=== PATIENT | female | born 1995 | race African-American/Black ===

== ENCOUNTER 2017-07-09 05:44 | Inpatient (IN) ==
[2017-07-09] MEDS ORDERED: MEPERIDINE 50 MG/1 ML VIAL IM PRN (06:06)
[2017-07-09] MEDS ORDERED: ONDANSETRON 4 MG/2 ML VIAL IV PRN (06:06)
[2017-07-09] MEDS ORDERED: INFLUENZA VIRUS VACCINE 0.5 ML SYRINGE IM ONE (06:20)
[2017-07-09] MEDS ORDERED: OXYTOCIN/LR 20 UNIT/1,000 ML BAG IV SCH (06:30)
[2017-07-09] MEDS: LACTATED RINGERS 1,000 ML IV SCH ×2 (06:30→09:22)
[2017-07-09 06:43] LABS: Apearance,Urine CLEAR (Clear); Bacteria,Urine Occasional /HPF (Few); Bilirubin,Urine Negative (Negative); Blood, Urine Negative (Negative); Glucose,Urine (UA) Negative (Negative); Ketones,Urine Negative (Negative); Mucus,Urine Occasional /LPF (Occasional); Nitrite,Urine Negative (Negative); Protein,Urine Negative; RBC,Urine 1 /HPF (0-4); Squamous Epithelial Cell,Urine Occasional /HPF (0-10); Urine Color Yellow (Yellow); Urine Specific Gravity 1.015 (1.001-1.035); Urine Urobilinogen < 2.0 EU/DL (0.2-1.0); WBC,Urine 1 /HPF (0-6)
[2017-07-09 06:48] LABS: Basophils % 0.3 % (0.0-0.8); Eosinophils # 0.3 10*3/uL (0.0-0.87); Eosinophils % 2.4 % (0.00-10.9); Hemoglobin 14.2 GM/DL (12.0-16.0); Immature Granulocytes % 0.6 %; Immature Granulocytes Absolute 0.07 #; Lymphocytes # 2.4 10*3/uL (1.4-4.0); Mean Corpuscular HGB Conc 33.8 GM/DL (32-36); Mean Corpuscular Hemoglobin 30 PG (27-34); Mean Corpuscular Volume 88.4 FL (87-102); Monocytes # 0.9 10*3/uL (0.11-0.8); Monocytes % 7.4 % (1.7-12.7); Neutrophils # 8.7 10*3/uL (1.4-7.4); Neutrophils % 70.3 % (38.7-73.9); Platelet Count 191 T/CUMM (130-400); Red Blood Count 4.75 MC/CUMM (3.8-5.5); Red Cell Distribution Width 14.5 % (9.3-17.3); White Blood Count 12.4 T/CUMM (4-12)
[2017-07-09] MEDS ORDERED: DINOPROSTONE VAG GEL 10 MG SYRINGE VAG ONE ×2 (06:50→15:51)
[2017-07-09 07:12] LABS: Albumin 3.1 G/DL (3.4-5.0); Bilirubin,Total 0.5 MG/DL (0.2-1.0); Calcium 9.1 MG/DL (8.5-10.1); Osmolality,Calculated 266.2 MOS/KG (273-304); Potassium 4.2 MMOL/L (3.5-5.1); Total Protein 6.7 G/DL (6.4-8.3); Uric Acid 3.7 MG/DL (2.6-6.0)
--- NOTE | 2017-07-09 09:59 | OB/GYN History & Physical ---
History of Present Illness Chief complaint: In for induction of labor. History of present illness: Ms. Miller is a 22 year old female who is a primigravida. Her SERENA is 07/14/2017 for an estimated gestational age of 39 weeks. The patient presents to the labor department for elective induction of labor due to term . The risk and benefits of been thoroughly discussed with this patient and significant other, plan of care has been discussed with Dr. Guillen and all parties are in agreement plan. The patient received her care at the [facility] and she received routine care, her course was uneventful. labs: She is O+, RPR is nonreactive, hepatitis B negative , HIV negative, rubella is immune, GBS cultures negative. Review of systems is negative with exception of above. Home Medications Medication Instructions Recorded Confirmed Type Vit No.124/Iron/Folic 1 tablet PO DAILY MDD one tab 07/09/17 07/09/17 History [ Vitamin Tablet] Allergies Allergy/AdvReac Type Severity Reaction Status Date / Time No Known Allergies Allergy Verified 07/09/17 06:04 12 point system: reviewed and no additional remarkable complaints except as stated Medical,Surgical,& Family Hx - Medical History Medical History: noncontributory Reproductive: History of: Abnormal Pap Smear (Patient had a cryosurgery because of this) - Surgical History Reproductive Surgeries: Patient denies;: Section - Family History Family History: Reports;: Family Diabetes (DAD), Family Hypertension (DAD) Denies;: Family Anesthesia Reaction, Family Cancer, Family Heart Disease, Family Hematology, Family Psychiatric Problems, Family Stroke, Additional Family History - Social History Smoking Status: Never smoker Frequency of Alcohol Use: None Type of Drug Use: None Marital Status: Single Lives With:: Significant Other Functional capacity: independent ambulation Exam YACHT HAND - Constitutional Vitals: Vital Signs Temp Pulse Resp BP 07/09/17 08:00 98.3 F 85 20 128/60 General appearance: no acute distress - Antepartum / Post Antepartum Exam Cervix - Dilatation: 1 cm Effacement: 50% Station: -2 Rupture: Intact Presentation: Vertex Heart Rate: 140s Breast: bilateral: normal Abdomen obstetrics: Present: bowel sounds normal Vagina: Present: normal moisture, discharge Uterus exam: Present: enlarged - Respiratory Respiratory exam: Present: clear to auscultation bilaterally - Cardiovascular Cardiovascular exam: Present: regular rate and rhythm - GI/Abdominal GI/Abdominal exam: Present: normal bowel sounds, soft - Extremities Exam Extremities exam: Present: normal inspection - Neurological Exam Neurological exam: Present: alert, oriented X3 - Psychiatric Psychiatric exam: Present: normal affect, normal mood - Skin Skin exam: Present: normal color, warm Assessment and Plan (1) 39 weeks gestation of Status: Acute Assessment and plan: Admit IV fluids Prostin gel per protocol IV Pitocin per protocol if indicated Artificial rupture membranes when appropriate Internal monitors if indicated Epidural anesthesia if desired Anticipate Current Visit: Yes Results - Labs CBC & BMP: 07/09/17 06:20 07/09/17 06:20
[2017-07-10] MEDS: LACTATED RINGERS 1,000 ML IV SCH (07:26)
--- NOTE | 2017-07-10 09:06 | Event Note ---
0828 Artificial rupture membranes was performed with clear fluid noted. The patient is 3 cm dilated 90% effaced and the vertex is presenting at a -2 station. She is receiving IV pain meds for pain control. The patient does not desire an epidural at this time. We will continue with plan of care. An IUPC was inserted without difficulty. Will proceed with IV Pitocin per protocol.
[2017-07-10] MEDS ORDERED: LACTATED RINGERS 1,000 ML IV ONE (09:53)
[2017-07-10] MEDS ORDERED: FAMOTIDINE 20 MG/2 ML VIAL IV ONE (09:53)
[2017-07-10] MEDS ORDERED: CITRIC ACID/SODIUM CITRATE 30 ML UDCUP PO ONE (09:53)
[2017-07-10] MEDS ORDERED: PROMETHAZINE 25 MG/1 ML VIAL IM ONE (09:54)
[2017-07-10] MEDS ORDERED: hydrOXYzine HCL 25 MG/1 ML VIAL IM PRN (09:54)
[2017-07-10] MEDS ORDERED: fentaNYL 2 MCG/ROPIV 0.2% EPID 150 ML EPIDURAL SCH (09:54)
[2017-07-10] MEDS ORDERED: diphenhydrAMINE 50 MG/1 ML VIAL IV PRN ×2 (09:54)
[2017-07-10] MEDS ORDERED: ePHEDrine 50 MG/ML AMP IV PRN (09:54)
[2017-07-10 11:29] LABS: Amorphous Crystals,Urine Occasional /HPF (Few); Apearance,Urine Slightly Hazy (Clear); Bacteria,Urine Occasional /HPF (Few); Bilirubin,Urine Negative (Negative); Blood, Urine Negative (Negative); Glucose,Urine (UA) Negative (Negative); Ketones,Urine Negative (Negative); Mucus,Urine Occasional /LPF (Occasional); Nitrite,Urine Negative (Negative); Protein,Urine Negative; RBC,Urine 1 /HPF (0-4); Squamous Epithelial Cell,Urine Occasional /HPF (0-10); Urine Color Yellow (Yellow); Urine Specific Gravity 1.017 (1.001-1.035); WBC,Urine 1 /HPF (0-6)
[2017-07-10 13:11] LABS: Cord Venous Blood HCO3 21.3 MMOL/L; Cord Venous Blood PCO2 49.1 MMHG
--- NOTE | 2017-07-10 13:34 | Event Note ---
HPI: Ms. Miller presented to the labor department for elective induction of labor with Prostin gel. The risk and benefits were thoroughly discussed with the patient and significant other, and plan of care was discussed with Dr. Guillen and all parties were in agreement with plan. Stage I: The patient was admitted she received Prostin gel per protocol 2. She subsequently was started on IV Pitocin per protocol the morning of 2016. Artificial rupture of membranes was performed clear fluid noted. She received an epidural for pain control. The patient progressed in labor with a CAT 1 tracing. An IUPC catheter was inserted for more effective monitoring. Ms. Miller had an uneventful course of labor. Stage II: The patient was complete and instructed to push. She pushed for approximately 15-20 minutes after which time the infant's head was delivered. The mouth and nose was suctioned out on the perineum. The remainder the infant was delivered at 1241, a viable male infant was noted. Apgars were 8 at 1 minute and 9 at 5 minutes. weight was 6 pounds and 8 ounces. A cord pH was obtained and sent to the lab. The was placed on the mom's abdomen for skin to skin bonding. Stage III: A spontaneous delivery of a Aquino placenta with a three-vessel cord noted. The placenta was further examined and appeared to be grossly intact. The vagina cervix was inspected with a first-degree vaginal laceration noted which was repaired. Epidural anesthesia remain in effect on repair. Estimated blood loss was approximately 150 cc. At the time of dictation mother and baby are both in stable condition.
[2017-07-10] MEDS ORDERED: ACETAMINOPHEN/CODEINE 300-30 MG TABLET PO PRN (13:57)
[2017-07-10] MEDS ORDERED: LANOLIN 50% CREAM 0.3 OZ TUBE TOP PRN (16:53)
[2017-07-10] MEDS ORDERED: DIPH/TET/ACEL PERT BOOSTER VACCINE 0.5 ML VIAL IM ONE (16:53)
[2017-07-10] MEDS ORDERED: MEASLES/MUMPS/RUBELLA VACCINE 0.5 ML VIAL SUBCUT ONE (16:53)
[2017-07-10] MEDS ORDERED: ACETAMINOPHEN 325 MG TABLET PO PRN (16:53)
[2017-07-10] MEDS ORDERED: WITCH HAZEL PADS 100/JAR TOP PRN (16:53)
[2017-07-10] MEDS ORDERED: BISACODYL 10 MG SUPP RECTAL PRN (16:53)
[2017-07-10] MEDS ORDERED: BENZOCAINE 20%/MENTHOL 0.5% SPRAY 56 GM CAN TOP PRN (16:53)
[2017-07-10] MEDS ORDERED: HYDROCORTISONE 2.5% RECTAL CREAM 30 GM TUBE TOP PRN (16:53)
[2017-07-10] MEDS ORDERED: oxyCODONE/ACETAMINOPHEN 5-325 MG TABLET PO PRN ×2 (16:53)
[2017-07-10] MEDS ORDERED: RHO(D) IMMUNE GLOBULIN 300 MCG SYRINGE IM ONE (16:53)
[2017-07-10] MEDS: DOCUSATE SODIUM 100 MG CAPSULE PO SCH (21:24)
[2017-07-11] MEDS: IBUPROFEN 800 MG TABLET PO PRN ×2 (05:57→18:01)
[2017-07-11 06:33] LABS: Basophils # 0.1 10*3/uL (0.0-0.2); Basophils % 0.4 % (0.0-0.8); Eosinophils # 0.2 10*3/uL (0.0-0.87); Eosinophils % 1.5 % (0.00-10.9); Hematocrit 40.2 VOL% (35.7-47.0); Hemoglobin 13.5 GM/DL (12.0-16.0); Immature Granulocytes % 0.5 %; Immature Granulocytes Absolute 0.08 #; Lymphocytes # 2.5 10*3/uL (1.4-4.0); Lymphocytes % 16.7 % (21.3-54.2); Mean Corpuscular HGB Conc 33.6 GM/DL (32-36); Mean Corpuscular Hemoglobin 30 PG (27-34); Mean Corpuscular Volume 89.9 FL (87-102); Mean Platelet Volume 12.2 FL (9.6-12.0); Monocytes # 1.1 10*3/uL (0.11-0.8); Monocytes % 7.5 % (1.7-12.7); Neutrophils % 73.4 % (38.7-73.9); Platelet Count 173 T/CUMM (130-400); Red Blood Count 4.47 MC/CUMM (3.8-5.5); Red Cell Distribution Width 14.6 % (9.3-17.3)
[2017-07-11] MEDS: DOCUSATE SODIUM 100 MG CAPSULE PO SCH ×2 (09:27→22:00)
--- NOTE | 2017-07-11 14:33 | Anesthesia Post-Op ---
Anesthesia Post OP - Post Ansesthetic Evaluation Patient seen in post op: Yes Resp: within normal limits CV: within normal limits Mental: within normal limits Temp: within normal limits Ivdy-Kb-Maefywzfo: within normal limits Nausea and Vomiting: within normal limits Pain: within normal limits
[2017-07-12 07:51] VITALS: BP 118/75
[2017-07-12] MEDS: DOCUSATE SODIUM 100 MG CAPSULE PO SCH (09:15)
--- NOTE | 2017-07-12 10:13 | Discharge Summary ---
Hospital Course - Hospital Course Hospital Course: Ms. Miller presented for elective induction of labor due to term . She subsequently delivered a viable infant with no complications. She has followed a normal course and she has done well. Her bleeding is minimal with no odor. Her perineum is intact with no edema. Her fundus is firm and midline. She is bonding well with her infant. Contraception options has been discussed with this patient and she desires to receive Depo-Provera. An informed consent will be obtained and the patient will receive prior to discharge. She will be discharged to home with prescriptions for pain and a follow-up appointment in our office. Diagnosis - Discharge Diagnosis (1) 39 weeks gestation of Status: Acute Specialty Discharge - Follow Up or Referrals Follow up with: Sanjana Guillen MD [Physician] - (Follow-up in 6 weeks.) Discharge Plan - Discharge Data Disposition: Disch To Home/Self Care Condition at Discharge: Stable Discharge Diet: advance to your usual diet, regular diet Activity: resume usual activities as tolerated Hygiene: no restrictions Weight Bearing at Discharge: weight bear as tolerated Driving: no restrictions Contact your physician if you experience:: fever over 101, Shortness of breath, pain uncontrolled by pain medications - Discharge Medications New Acetamin/Codeine 300-30 Tab [Tylenol/Codeine #3] 2 tablet PO Q4H PRN #30 tablet PRN Reason: Pain Mild (1-3) Ibuprofen Tab [Motrin Tab] 800 mg PO Q8H PRN #30 tablet PRN Reason: Pain Moderate (4-7) No Action Vit No.124/Iron/Folic [ Vitamin Tablet] 1 tablet PO DAILY MDD one tab - Follow Up or Referral - Forms/Instructions Exam - Constitutional Vitals: Period Temp Pulse Resp BP Sys/Shah Pulse Ox Last 24 Hr 96.9 F-98.4 F 69-86 18-20 108-118/57-75 95-98 General appearance: no acute distress - Head Head exam: Present: normal inspection - Respiratory Respiratory exam: Present: clear to auscultation bilaterally - Cardiovascular Cardiovascular exam: Present: regular rate and rhythm - GI/Abdominal GI/Abdominal exam: Present: normal bowel sounds, soft - Extremities Exam Extremities exam: Present: normal inspection - Neurological Exam Neurological exam: Present: alert, oriented X3, normal gait - Psychiatric Psychiatric exam: Present: normal affect, normal mood - Skin Skin exam: Present: normal color, warm DS: Provider Date of admission: 07/09/17 05:45 Primary care physician: . No PCP Attending physician on admission: Sanjana Guillen MD Consults: 07/09/17 06:07 Consult to Anesthesiology [CONS] Routine Consulting Provider: Reason for Anesthesiology: Epidural Consult Comment: Epidural for pain managment 07/10/17 16:53 Consult to Sole Tier [CONS] Routine Consult Sole Tier: Breast Feeding Discharging clinician: Arianna Odom CNM Expected date of discharge: 07/12/17
== END 2017-07-12 13:20 | disposition home or self-care (01) | DRG 775 ==
LOC: N.LDOUT 05:44 → N.LD 05:45 → N.OB 07-10 16:01
PROVIDERS: ADMIT Obstetrics & Gynecology; ATTEND Obstetrics & Gynecology